=== PATIENT | female | born 1985 | race Caucasian/White ===

== ENCOUNTER 2018-02-14 15:06 | Emergency (ER) | payer MEDICAID ==
[~2018-02-14 15:06] MED LIST: BACL10TA PO; BUPR150T6 PO; BUPR1PAT TOP; CLON1TAB4 PO; CYPR4TAB34 PO; DIPH1TAB PO; FAMO40TA73 PO; HYDR-3686 PO; HYDR-565 PO; PARO30TA73 PO; PARO40TA PO; PHEN-887 PO; SULF1TAB49 PO; TRAZ-143 PO
== END 2018-02-14 16:52 | disposition left against medical advice (07) ==
LOC: ER 15:07
DX: N23 Unspecified renal colic (principal); Z53.21 Procedure and treatment not carried out due to patient leaving prior to being seen by health care provider

== ENCOUNTER 2018-03-04 13:31 | Emergency (ER) | payer MEDICAID ==
[~2018-03-04] VITALS: Ht 167.6 cm; Wt 57.3 kg
[2018-03-04] MEDS ORDERED: CYCL-1 PO (15:19)
[2018-03-04 15:30] VITALS: BP 114/82
== END 2018-03-04 15:31 | disposition home or self-care (01) ==
LOC: ER 13:32
DX: S13.9XXA Sprain of joints and ligaments of unspecified parts of neck, initial encounter (principal); G43.909 Migraine, unspecified, not intractable, without status migrainosus; J45.909 Unspecified asthma, uncomplicated; F17.210 Nicotine dependence, cigarettes, uncomplicated; Z90.49 Acquired absence of other specified parts of digestive tract; Z90.710 Acquired absence of both cervix and uterus; Z88.8 Allergy status to other drugs, medicaments and biological substances; Z88.6 Allergy status to analgesic agent; Z88.1 Allergy status to other antibiotic agents; Z91.013 Allergy to seafood; Z79.899 Other long term (current) drug therapy; Y04.8XXA Assault by other bodily force, initial encounter
CPT/HCPCS: 71045; 72125; 73000; 73030; 73090; 73110; 99284

== ENCOUNTER 2019-09-26 09:19 | Emergency (ER) | payer MEDICAID ==
[~2019-09-26] VITALS: Ht 167.6 cm; Wt 70.0 kg
[~2019-09-26 09:19] MED LIST changes: +CLON-514 PO; -CLON1TAB4 PO; +CYCL-1 PO; -CYPR4TAB34 PO; +CYPR4TAB44 PO; +HYDR-4353 PO; -HYDR-565 PO; -TRAZ-143 PO; +TRAZ-251 PO
[2019-09-26 09:52] LABS: BASOPHILS % (AUTO) 0.2 % (0-1); EOSINOPHILS # (AUTO) 0.1 X10'3 (0-0.9); EOSINOPHILS % (AUTO) 0.9 % (0-6); HEMATOCRIT 40.1 % (35.0-45.0); HEMOGLOBIN 13.1 g/dl (12.0-16.0); LYMPHOCYTES # (AUTO) 0.6 X10'3 (1.1-4.8); LYMPHOCYTES % (AUTO) 6.4 % (21-51); MEAN CORPUSCULAR HEMOGLOBIN 28.3 PG (27.0-31.0); MEAN CORPUSCULAR HGB CONC 32.7 g/dL (33.0-36.5); MEAN CORPUSCULAR VOLUME 86.4 FL (78-98); MEAN PLATELET VOLUME 6.9 FL (7.4-10.4); MONOCYTES # (AUTO) 0.3 X10'3 (0-0.9); NEUTROPHILS # (AUTO) 7.9 X10'3 (1.8-7.7); NEUTROPHILS % (AUTO) 89.5 % (42-75); PLATELET COUNT 341 X10'3 (140-440); RED BLOOD COUNT 4.64 X10'6 (4.20-5.60); RED CELL DISTRIBUTION WIDTH 14.5 % (11.5-14.5); WHITE BLOOD COUNT 8.8 X10'3 (4.5-11.0)
[2019-09-26] MEDS ORDERED: ondansetron/PF 4mg/2ml inj IV ONE ×2 (10:00→11:55)
[2019-09-26] MEDS ORDERED: ketorolac tromethamine 15mg/ml inj. IV ONE (10:00)
[2019-09-26 10:17] LABS: ALANINE AMINOTRANSFERASE 20 U/L (12-78); ALBUMIN 3.4 G/DL (3.4-5.0); ALBUMIN/GLOBULIN RATIO 0.9 (1.1-1.5); ALKALINE PHOSPHATASE 63 IU/L (46-116); ANION GAP 7 (8-16); ASPARTATE AMINO TRANSFERASE 14 U/L (10-37); BILIRUBIN,TOTAL 0.6 MG/DL (0.1-1.0); BLOOD UREA NITROGEN 19 MG/DL (7-18); BUN/CREATININE RATIO 24.7 (6.6-38.0); CALCIUM 8.2 MG/DL (8.5-10.1); CHLORIDE 105 MMOL/L (99-107); CREATININE 0.77 MG/DL (0.40-0.90); GLUCOSE 93 MG/DL (70-104); POTASSIUM 4.3 MMOL/L (3.5-5.1); SODIUM 141 MMOL/L (135-145); TOTAL CARBON DIOXIDE 29.3 MMOL/L (24-32); TOTAL PROTEIN 7.2 G/DL (6.4-8.2); eGFR 85 ML/MIN
[2019-09-26] MEDS ORDERED: normal saline 1000ML IV soln IVB ONE (10:40)
[2019-09-26 10:59] LABS: CLARITY,URINE CLEAR (Clear); COLOR,URINE YELLOW (Yellow); GLUCOSE, URINE NEGATIVE (Neg); KETONES,URINE NEGATIVE (Neg); LEUKOCYTE ESTERASE ,URINE TRACE (Neg); NITRITES, URINE NEGATIVE (Neg); OCCULT BLOOD,URINE NEGATIVE (Neg); PROTEIN,URINE NEGATIVE (Neg); UROBILINOGEN,URINE 0.2 E.U/dL (0.2-1.0)
[2019-09-26 11:04] LABS: UA COLLECTION TYPE CLN CATCH MIDSTREAM
[2019-09-26 11:09] LABS: BACTERIA,URINE FEW /HPF (Neg); MUCUS STRANDS NONE SEEN /LPF (Neg); RBC,URINE 0-2 /HPF (0-2); SQUAMOUS EPITHELIAL CELL,UR MANY /LPF (FEW)
[2019-09-26 11:10] LABS: TRANSITIONAL EPI CELLS,URINE FEW /HPF; TRICHOMONAS,URINE FEW /HPF (NEGATIVE)
[2019-09-26] MEDS ORDERED: morphine 4 MG/ML inj SYRINge IV ONE (11:15)
[2019-09-26] MEDS ORDERED: SULF1TAB49 PO (11:18)
[2019-09-26] MEDS ORDERED: morphine 2 MG/ML inj. syringe IV ONE (11:55)
[2019-09-26] MEDS ORDERED: CefTRIAXone 250MG IM Kit w/LIDOcaine IM ONE (12:00)
[2019-09-26] MEDS ORDERED: METR-159 PO (12:00)
[2019-09-26] MEDS ORDERED: DOXY100C2 PO (12:00)
[2019-09-26] MEDS ORDERED: HYDR-3965 PO (12:01)
[2019-09-26] MEDS ORDERED: ONDA4TAB6 PO (12:18)
[2019-09-26 12:56] VITALS: BP 109/76
== END 2019-09-26 12:58 | disposition home or self-care (01) ==
LOC: ER 09:19
DX: N39.0 Urinary tract infection, site not specified (principal); N73.8 Other specified female pelvic inflammatory diseases; N76.0 Acute vaginitis; B96.89 Other specified bacterial agents as the cause of diseases classified elsewhere; A59.9 Trichomoniasis, unspecified; G43.909 Migraine, unspecified, not intractable, without status migrainosus; J45.909 Unspecified asthma, uncomplicated; F32.9 Major depressive disorder, single episode, unspecified; F17.200 Nicotine dependence, unspecified, uncomplicated; Z87.442 Personal history of urinary calculi; Z90.49 Acquired absence of other specified parts of digestive tract; Z90.710 Acquired absence of both cervix and uterus; Z98.890 Other specified postprocedural states; Z88.0 Allergy status to penicillin; Z88.6 Allergy status to analgesic agent; Z88.1 Allergy status to other antibiotic agents; Z88.8 Allergy status to other drugs, medicaments and biological substances; Z91.013 Allergy to seafood; Z79.899 Other long term (current) drug therapy
CPT/HCPCS: 36415; 80053; 81001; 85025; 85610; 87210; 87491; 87591; 96372; 96374; 96375; 96376; 99283; J0696; J1885; J2270; J2405; J7030

== ENCOUNTER 2020-08-03 10:17 | Emergency (ER) | payer MEDICAID ==
[~2020-08-03] VITALS: Ht 167.6 cm; Wt 70.0 kg
[~2020-08-03 10:17] MED LIST changes: +ONDA4TAB6 PO
[2020-08-03] MEDS ORDERED: morphine 4 MG/ML inj SYRINge IV ONE (10:40)
[2020-08-03] MEDS ORDERED: LORazepam 2 mg/ml vial IV ONE (10:40)
[2020-08-03] MEDS ORDERED: clindamycin 150mg capsule PO ONE (10:45)
[2020-08-03 11:30] LABS: BASOPHILS # (AUTO) 0.1 X10'3 (0-0.2); BASOPHILS % (AUTO) 0.9 % (0-1); EOSINOPHILS # (AUTO) 0.1 X10'3 (0-0.9); EOSINOPHILS % (AUTO) 1.9 % (0-6); HEMATOCRIT 37.6 % (35.0-45.0); HEMOGLOBIN 12.4 g/dl (12.0-16.0); LYMPHOCYTES # (AUTO) 1.7 X10'3 (1.1-4.8); LYMPHOCYTES % (AUTO) 23.6 % (21-51); MEAN CORPUSCULAR HEMOGLOBIN 28.4 PG (27.0-31.0); MEAN CORPUSCULAR VOLUME 86.3 FL (78-98); MEAN PLATELET VOLUME 6.9 FL (7.4-10.4); MONOCYTES # (AUTO) 0.5 X10'3 (0-0.9); MONOCYTES % (AUTO) 6.3 % (2-12); NEUTROPHILS # (AUTO) 4.9 X10'3 (1.8-7.7); NEUTROPHILS % (AUTO) 67.3 % (42-75); PLATELET COUNT 352 X10'3 (140-440); RED BLOOD COUNT 4.35 X10'6 (4.20-5.60); RED CELL DISTRIBUTION WIDTH 14.1 % (11.5-14.5); WHITE BLOOD COUNT 7.3 X10'3 (4.5-11.0)
[2020-08-03] MEDS ORDERED: neomy sulf/polymyx B sulf/HC 10ml otic suspension RIGHT EAR ONE (11:40)
[2020-08-03 11:45] LABS: ALANINE AMINOTRANSFERASE 26 U/L (12-78); ALBUMIN 3.3 G/DL (3.4-5.0); ALBUMIN/GLOBULIN RATIO 0.8 (1.1-1.5); ALKALINE PHOSPHATASE 60 IU/L (46-116); ANION GAP 5 (8-16); ASPARTATE AMINO TRANSFERASE 23 U/L (10-37); BILIRUBIN,TOTAL 1.1 MG/DL (0.1-1.0); BLOOD UREA NITROGEN 13 MG/DL (7-18); BUN/CREATININE RATIO 17.8 (6.6-38.0); CALCIUM 8.3 MG/DL (8.5-10.1); CHLORIDE 103 MMOL/L (99-107); CREATININE 0.73 MG/DL (0.40-0.90); GLUCOSE 92 MG/DL (70-104); POTASSIUM 3.5 MMOL/L (3.5-5.1); SODIUM 136 MMOL/L (135-145); TOTAL CARBON DIOXIDE 27.8 MMOL/L (24-32); TOTAL PROTEIN 7.2 G/DL (6.4-8.2); eGFR 90 ML/MIN
--- NOTE | 2020-08-03 11:58 | NUR ---
PT RESTING, LAYING ON HER RIGHT SIDE. RESPIRATIONS EVEN AND UNLABORED.
--- NOTE | 2020-08-03 12:10 | NUR ---
PT TO CT VIA [facility] WITH ARMATURE BALANCER
[2020-08-03] MEDS ORDERED: CLIN300C54 PO (13:34)
[2020-08-03] MEDS ORDERED: ACET-2119 PO (13:34)
[2020-08-03 15:05] VITALS: BP 112/82
== END 2020-08-03 15:10 | disposition home or self-care (01) ==
LOC: ER 10:21
DX: H60.91 Unspecified otitis externa, right ear (principal); G43.909 Migraine, unspecified, not intractable, without status migrainosus; J45.909 Unspecified asthma, uncomplicated; F32.9 Major depressive disorder, single episode, unspecified; Z87.442 Personal history of urinary calculi; Z90.49 Acquired absence of other specified parts of digestive tract; Z90.710 Acquired absence of both cervix and uterus; Z98.890 Other specified postprocedural states; Z88.0 Allergy status to penicillin; Z88.6 Allergy status to analgesic agent; Z91.013 Allergy to seafood; Z79.899 Other long term (current) drug therapy
CPT/HCPCS: 36415; 70490; 80053; 85025; 96374; 96375; 99284; J2060; J2270

== ENCOUNTER 2021-05-27 17:33 | Emergency (ER) | payer MEDICAID ==
[~2021-05-27] VITALS: Ht 167.6 cm; Wt 69.4 kg
[~2021-05-27 17:33] MED LIST changes: +BUPR-317 PO; -BUPR150T6 PO; -CLON-514 PO; +CLON1TAB96 PO
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
[2021-05-27] MEDS ORDERED: CEPH250T PO (19:32)
[2021-05-27] MEDS ORDERED: DIPH25CA83 PO (19:32)
[2021-05-27] MEDS ORDERED: PRED20TA PO (19:32)
[2021-05-27 19:46] VITALS: BP 114/77
== END 2021-05-27 19:47 | disposition home or self-care (01) ==
LOC: ER 17:36
DX: S80.862A Insect bite (nonvenomous), left lower leg, initial encounter (principal); S80.861A Insect bite (nonvenomous), right lower leg, initial encounter; J45.909 Unspecified asthma, uncomplicated; F32.9 Major depressive disorder, single episode, unspecified; Z87.442 Personal history of urinary calculi; Z87.440 Personal history of urinary (tract) infections; Z90.89 Acquired absence of other organs; Z90.710 Acquired absence of both cervix and uterus; Z98.890 Other specified postprocedural states; Z88.0 Allergy status to penicillin; Z88.1 Allergy status to other antibiotic agents; Z88.8 Allergy status to other drugs, medicaments and biological substances; Z88.6 Allergy status to analgesic agent; Z91.013 Allergy to seafood; Z79.2 Long term (current) use of antibiotics; Z79.899 Other long term (current) drug therapy; W57.XXXA Bitten or stung by nonvenomous insect and other nonvenomous arthropods, initial encounter; Y93.9 Activity, unspecified; Y92.89 Other specified places as the place of occurrence of the external cause; Y99.8 Other external cause status
CPT/HCPCS: 99283

== ENCOUNTER 2022-04-06 16:16 | Emergency (ER) | payer MEDICAID ==
[~2022-04-06] VITALS: Ht 165.1 cm; Wt 58.0 kg
[~2022-04-06 16:16] MED LIST changes: +DIPH25CA83 PO
[2022-04-06] MEDS ORDERED: HYDR-3965 PO (18:03)
[2022-04-06] MEDS ORDERED: CLIN300C71 PO (18:03)
[2022-04-06 18:36] VITALS: BP 103/71
== END 2022-04-06 18:50 | disposition home or self-care (01) ==
LOC: ER 16:16
DX: K04.7 Periapical abscess without sinus (principal); G92.9 Unspecified toxic encephalopathy; Z87.442 Personal history of urinary calculi; J45.909 Unspecified asthma, uncomplicated; F32.9 Major depressive disorder, single episode, unspecified; Z88.0 Allergy status to penicillin; Z88.6 Allergy status to analgesic agent; Z88.1 Allergy status to other antibiotic agents; Z88.8 Allergy status to other drugs, medicaments and biological substances
CPT/HCPCS: 99283

== ENCOUNTER 2023-06-02 03:14 | Emergency (ER) | payer MEDICAID ==
[~2023-06-02] VITALS: Ht 165.1 cm; Wt 56.8 kg
[~2023-06-02 03:14] MED LIST changes: +PARO-154 PO; -PARO30TA73 PO; +PARO30TA97 PO; -PARO40TA PO
[2023-06-02 03:24] VITALS: BP 129/85
== END 2023-06-02 05:17 | disposition left against medical advice (07) ==
LOC: ER 03:15
DX: R11.10 Vomiting, unspecified (principal); Z53.21 Procedure and treatment not carried out due to patient leaving prior to being seen by health care provider
CPT/HCPCS: 71045; 99281